=== PATIENT | male | born 1960 | race Caucasian/White ===

== ENCOUNTER 2023-02-06 21:44 | Emergency (ER) | payer OTHER ==
[~2023-02-06] VITALS: Ht 177.8 cm; Wt 70.3 kg
--- NOTE | 2023-02-06 22:52 | NUR ---
BIBS FROM HOME FOR C/O DIZZINESS X 1 DAY. WORSE UPON MOVING HIS HEAD IN CERTAIN DIRECTION, LAYING DOWN OR CLOSING EYES. PT A/OX4. TOLERATING R/A WELL WITH NO RESP DISTRESS. CONNECTED PT TO POX AND MONITOR. SAFETY MEASURES IN PLACE.
[2023-02-06] MEDS ORDERED: ONDANSETRON HCL/PF 4 MG/2 ML VIAL ONE (22:56)
[2023-02-06] MEDS ORDERED: IV NS 0.9% 500 ML BAG IV ONE (23:00)
[2023-02-06] MEDS ORDERED: ONDANSETRON HCL/PF 4 MG/2 ML VIAL IVP ONE (23:00)
--- NOTE | 2023-02-06 23:08 | NUR ---
URINE COLLECTED AND SENT TO LAB
--- NOTE | 2023-02-06 23:08 | NUR ---
RAC #20G S/L BLOOD COLLECTED AND SENT TO LAB
[2023-02-06] MEDS: MECLIZINE HCL 12.5 MG TABLET PO ONE (23:16)
[2023-02-06 23:20] LABS: BILIRUBIN,URINE NEGATIVE (NEGATIVE); COLOR,URINE YELLOW (YELLOW); LEUKOCYTE ESTERASE ,URINE NEGATIVE (NEGATIVE); NITRITE, URINE NEGATIVE (NEGATIVE); PH,URINE 6.5 (5.0-8.0); PROTEIN,URINE NEGATIVE (NEGATIVE); UGLUCOSE NEGATIVE (NEGATIVE); UROBILINOGEN,URINE 0.2 EU/dL (0.2)
[2023-02-06 23:21] LABS: BASOPHILS # (AUTO) 0.1 K/uL (0.0-0.2); BASOPHILS % (AUTO) 1.4 % (0.0-2.0); EOSINOPHILS % (AUTO) 4.7 % (0.0-6.0); HEMATOCRIT 42 % (39-51); HEMOGLOBIN 13.9 g/dL (13.5-17.5); LYMPHOCYTES # (AUTO) 1.4 K/uL (0.8-4.8); LYMPHOCYTES % (AUTO) 26.7 % (20.0-44.0); MEAN CORPUSCULAR HGB CONC 33 g/dl (31.0-36.0); MEAN CORPUSCULAR VOLUME 95 fL (80-96); MONOCYTES # (AUTO) 0.5 K/uL (0.1-1.30); NEUTROPHILS % (AUTO) 57.2 % (43.0-81.0); PLATELET COUNT (AUTO) 225 K/uL (150-450); WHITE BLOOD COUNT (AUTO) 5.2 K/uL (4.3-11.0)
[2023-02-06 23:26] LABS: CARBON DIOXIDE 28 mmol/L (21-32); CHLORIDE 104 mmol/L (98-107); CREATININE 1.3 mg/dL (0.6-1.3); GLUCOSE 101 mg/dL (74-106); POTASSIUM 4.2 mmol/L (3.5-5.1); SODIUM SERUM 137 mmol/L (136-145); UREA NITROGEN, BLOOD 14 mg/dL (7-18)
[2023-02-06 23:35] LABS: ALANINE AMINOTRANSFERASE 34 U/L (12-78); ALBUMIN 3.8 g/dL (3.4-5.0); ALKALINE PHOSPHATASE 89 U/L (46-116); ASPARTATE AMINOTRANSFERASE 33 U/L (15-37); BILIRUBIN,DIRECT 0.1 mg/dL (0.0-0.2); BILIRUBIN,TOTAL 0.4 mg/dL (0.2-1.0); TOTAL PROTEIN, SERUM 6.6 g/dL (6.4-8.2)
--- NOTE | 2023-02-06 23:43 | NUR ---
PT TAKEN TO CT VIA [facility]
--- NOTE | 2023-02-06 23:58 | NUR ---
PT RETURNED TO ER BED [address]
[2023-02-07] MEDS ORDERED: MECLIZINE HCL 25 MG TABLET ONE (00:32)
[2023-02-07] MEDS: MECLIZINE HCL 12.5 MG TABLET PO ONE (00:35)
--- NOTE | 2023-02-07 00:35 | NUR ---
GENERAL STUDIES PROGRAM CHAIR AT PT'S BEDSIDE
--- NOTE | 2023-02-07 01:38 | NUR ---
Patient discharged to home in stable condition. Written and verbal after care instructions given. Patient verbalizes understanding of instruction. IV removed. Catheter intact and site benign. Pressure and 4x4 applied to site. No bleeding noted. pt ambulatory with a steady gait
[2023-02-07 01:39] VITALS: BP 123/74
== END 2023-02-07 02:32 | disposition home or self-care (01) ==
LOC: ER 21:47
DX: R42 Dizziness and giddiness (principal); Z60.2 Problems related to living alone
CPT/HCPCS: 99285; 70450; 71045; 93005; 85025; 80048; 80076; 81003; 36415 ×2; 84484 ×2; 85730; 82962; J7040; J8597; J2405

== ENCOUNTER 2023-09-17 19:58 | Emergency (ER) | payer MEDICARE, BC ==
[~2023-09-17] VITALS: Ht 177.8 cm; Wt 72.6 kg
[2023-09-18 01:04] VITALS: BP 136/86; TEMP 98; O2SAT 100
== END 2023-09-18 01:06 | disposition home or self-care (01) ==
LOC: ER 20:02
DX: M79.604 Pain in right leg (principal); Z60.2 Problems related to living alone
CPT/HCPCS: 93971-TC